=== PATIENT | female | born 1965 | race Caucasian/White ===

== ENCOUNTER 2016-10-26 13:31 | Emergency (ER) | payer OTHER ==
[2016-10-26 13:38] VITALS: TEMP 97.5; BMI 27.6
[2016-10-26 14:43] LABS: AUTOMATED BASOPHIL 0.6 % (0-2); AUTOMATED EOSINOPHIL 1.9 % (0-5); AUTOMATED LYMPH 28.9 % (17-44); AUTOMATED MONOCYTE 8.5 % (3-10); AUTOMATED NEUTROPHIL 60.1 % (45-76)
[2016-10-26 14:48] LABS: LEUKOCYTES/URINE NEG (NEGATIVE); NITRITE/URINE NEG (NEGATIVE); RBC/URINE 0-2 (0-5); URINE OCCULT BLOOD NEG (NEG/TRACE); WBC/URINE 0-2 (0-5)
[2016-10-26 15:04] LABS: BLOOD UREA NITROGEN 13 MG/DL (7-17); CALCIUM 8.9 MG/DL (8.4-10.2); CALCULATED OSMOLALITY 263 MOs/Kg (270-290); CHLORIDE 101 mEq/L (98-107); GLUCOSE 86 mg/dL (70-99); SODIUM LEVEL 137 mEq/L (137-146); TOTAL PROTEIN 7.3 G/DL (6.3-8.2)
[2016-10-26] MEDS ORDERED: MORPHINE 4 MG/ML INJECTION IV ONE (15:16)
[2016-10-26] MEDS ORDERED: NS 1,000 ML IV ONE (15:16)
[2016-10-26] MEDS ORDERED: ONDANSETRON HCL 4 MG/2 ML VIAL IV ONE (15:16)
--- NOTE | 2016-10-26 15:19 | EDPRACDOC ---
<Cydney Quezada - Last Filed: 10/26/16 16:27> - General Information Information Source: Patient - History of Present Illness Onset: 2 weeks HPI: C/O progressive left flank and suprapubic pain and nausea x 2 weeks. Pain is intermittent, sharp, lasts a few minutes and then goes away. Better with movement, better or worse with positioning. Denies fever, sob, cp, cough, sore throat, V/D. No prior hx of kidney stones. Mmed hx = none. Surgical hx = appy, keith, hysterectomy. Pain Location: Reports: Left, Flank Pain Radiates To: Reports: None Pain Caused By: Reports: Spontaneous Circumstances: Reports: Unknown Currently ?: No Pain Severity: Reports: Moderate Pain Quality: Reports: Sharp Worsened By: Reports: Twisting Associated Signs and Symptoms: Reports: Abdominal Pain, Nausea <Nawaf Segovia - Last Filed: 10/28/16 04:52> - General Information Chief Complaint: Female Urogenital Problems Stated Complaint: FLANK PAIN Home Medications: Home Medications Ibuprofen Tablet [Motrin] 600 mg PO TID PRN #30 tab 10/26/16 Allergies/Adverse Reactions: Allergies Allergy/AdvReac Type Severity Reaction Status Date / Time No Known Allergies Allergy Verified 10/26/16 13:35 ED Past Medical History - History Reviewed Yes Nurses notes reviewed and agree except as marked - Patient Medical History Surgical History: Reports: Hysterectomy - Social Medical History Smoking Status: Never smoker <Nawaf Segovia - Last Filed: 10/28/16 04:52> EDM Review of Systems - Review of Systems ROS Negative Except as Marked: Yes All systems reviewed and were negative except as marked Gastrointestinal: Nausea, Pain Genitourinary: Flank Pain (left) <Nawaf Segovia - Last Filed: 10/28/16 04:52> - Physical Exam Last recorded Vital Signs: Last Vital Signs Temp 97.5 F 10/26/16 13:35 Pulse 65 10/26/16 13:35 Resp 20 10/26/16 13:35 BP 133/75 10/26/16 13:35 Pulse Ox 99 10/26/16 13:35 Oxygen Pulse Oxygen Saturation 99 O2 Device Oxygen Flow Rate Fraction of Inspired Oxygen ( FIO2) <Cydney Quezada - Last Filed: 10/26/16 16:27> - Physical Exam Constitutional: Alert, Distress (pain) Oriented to: Time, Person, Place Last recorded Vital Signs: Last Vital Signs Temp 97.5 F 10/26/16 13:35 Pulse 65 10/26/16 13:35 Resp 20 10/26/16 13:35 BP 133/75 10/26/16 13:35 Pulse Ox 99 10/26/16 13:35 Oxygen Pulse Oxygen Saturation 99 O2 Device Oxygen Flow Rate Fraction of Inspired Oxygen ( FIO2) - HEENT Head: Normal Eye Exam: negative: Conjunctival Injection, Scleral Icterus Oropharynx: negative: Drooling TMJ: Normal Nose: No Symptoms Reported Neck: Normal - Respiratory/Cardiovascular Respiratory: Normal - CTA Cardiovascular: Normal - GI Tenderness: Non tender - Musculoskeletal Back: Normal Extremities: Normal - Integumentary Skin: Normal - Neurologic Mood Description: Normal Thought: Coherent Perception: Normal <Nawaf Segovia - Last Filed: 10/28/16 04:52> - Results 10/26/16 14:10 10/26/16 14:10 WBC 8.1 xk/uL (3.8-10.8) 10/26/16 14:10 RBC 4.79 xM/uL (4.20-5.40) 10/26/16 14:10 Hgb 15.2 g/dL (12.0-16.0) 10/26/16 14:10 Hct 44.2 % (36-47) 10/26/16 14:10 MCV 92 fL (81-99) 10/26/16 14:10 MCH 31.7 pg (27-32) 10/26/16 14:10 MCHC 34.4 g/dl (33-36) 10/26/16 14:10 RDW 13.0 % (11.5-14.5) 10/26/16 14:10 Plt Count 283 xk/uL (130-400) 10/26/16 14:10 MPV 7.0 fL (7.4-10.4) L 10/26/16 14:10 Neut % (Auto) 60.1 % (45-76) 10/26/16 14:10 Lymph % (Auto) 28.9 % (17-44) 10/26/16 14:10 Rich % (Auto) 8.5 % (3-10) 10/26/16 14:10 Eos % (Auto) 1.9 % (0-5) 10/26/16 14:10 Baso % (Auto) 0.6 % (0-2) 10/26/16 14:10 Absolute Neuts (auto) 4.86 xk/uL (1.7-8.2) 10/26/16 14:10 Absolute Lymphs (auto) 2.27 xk/uL (0.65-4.75) 10/26/16 14:10 Sodium 137 mEq/L (137-146) 10/26/16 14:10 Potassium 4.1 mEq/L (3.5-5.1) 10/26/16 14:10 Chloride 101 mEq/L (98-107) 10/26/16 14:10 Carbon Dioxide 27 mMOL/L (22-33) 10/26/16 14:10 Anion Gap 13 mEq/L (8-16) 10/26/16 14:10 BUN 13 MG/DL (7-17) 10/26/16 14:10 Creatinine 0.60 MG/DL (0.52-1.04) 10/26/16 14:10 Estimated GFR (MDRD) > 60 mL/min (>=60) 10/26/16 14:10 Glucose 86 mg/dL (70-99) 10/26/16 14:10 Calculated Osmolality 263 MOs/Kg (270-290) L 10/26/16 14:10 Calcium 8.9 MG/DL (8.4-10.2) 10/26/16 14:10 Total Bilirubin 0.9 MG/DL (0.2-1.3) 10/26/16 14:10 AST 35 IU/L (14-36) 10/26/16 14:10 ALT 51 IU/L (9-52) 10/26/16 14:10 Alkaline Phosphatase 74 IU/L (38-126) 10/26/16 14:10 Total Protein 7.3 G/DL (6.3-8.2) 10/26/16 14:10 Albumin 4.4 G/DL (3.5-5.0) 10/26/16 14:10 Urine Color Yellow 10/26/16 14:05 Urine Clarity Clear 10/26/16 14:05 Urine pH 5.0 (5.0-8.0) 10/26/16 14:05 Ur Specific Cornelius 1.005 (1.003-1.035) 10/26/16 14:05 Urine Protein Neg (NEG/TRACE) 10/26/16 14:05 Urine Glucose (UA) Neg (NEGATIVE) 10/26/16 14:05 Urine Ketones Neg (NEGATIVE) 10/26/16 14:05 Urine Occult Blood Neg (NEG/TRACE) 10/26/16 14:05 Urine Nitrite Neg (NEGATIVE) 10/26/16 14:05 Urine Bilirubin Neg (NEGATIVE) 10/26/16 14:05 Urine Urobilinogen <2.0 MG/DL (0-1) 10/26/16 14:05 Ur Leukocyte Esterase Neg (NEGATIVE) 10/26/16 14:05 Urine RBC 0-2 (0-5) 10/26/16 14:05 Urine WBC 0-2 (0-5) 10/26/16 14:05 Ur Epithelial Cells 1+ 10/26/16 14:05 Urine Bacteria 1+ (NEG/FEW) H 10/26/16 14:05 Urine Mucus Occ (NEG/OCC) 10/26/16 14:05 Lab Results 10/26/16 10/26/16 10/26/16 14:10 14:10 14:05 WBC 8.1 RBC 4.79 Hgb 15.2 Hct 44.2 MCV 92 MCH 31.7 MCHC 34.4 RDW 13.0 Plt Count 283 MPV 7.0 L Neut % (Auto) 60.1 Lymph % (Auto) 28.9 Rich % (Auto) 8.5 Eos % (Auto) 1.9 Baso % (Auto) 0.6 Absolute Neuts (auto) 4.86 Absolute Lymphs (auto) 2.27 Sodium 137 Potassium 4.1 Chloride 101 Carbon Dioxide 27 Anion Gap 13 BUN 13 Creatinine 0.60 Estimated GFR (MDRD) > 60 Glucose 86 Calculated Osmolality 263 L Calcium 8.9 Total Bilirubin 0.9 AST 35 ALT 51 Alkaline Phosphatase 74 Total Protein 7.3 Albumin 4.4 Urine Color Yellow Urine Clarity Clear Urine pH 5.0 Ur Specific Cornelius 1.005 Urine Protein Neg Urine Glucose (UA) Neg Urine Ketones Neg Urine Occult Blood Neg Urine Nitrite Neg Urine Bilirubin Neg Urine Urobilinogen <2.0 Ur Leukocyte Esterase Neg Urine RBC 0-2 Urine WBC 0-2 Ur Epithelial Cells 1+ Urine Bacteria 1+ H Urine Mucus Occ <QuezadaCydney beal N - Last Filed: 10/26/16 16:27> - Results 10/26/16 14:10 10/26/16 14:10 WBC 8.1 xk/uL (3.8-10.8) 10/26/16 14:10 RBC 4.79 xM/uL (4.20-5.40) 10/26/16 14:10 Hgb 15.2 g/dL (12.0-16.0) 10/26/16 14:10 Hct 44.2 % (36-47) 10/26/16 14:10 MCV 92 fL (81-99) 10/26/16 14:10 MCH 31.7 pg (27-32) 10/26/16 14:10 MCHC 34.4 g/dl (33-36) 10/26/16 14:10 RDW 13.0 % (11.5-14.5) 10/26/16 14:10 Plt Count 283 xk/uL (130-400) 10/26/16 14:10 MPV 7.0 fL (7.4-10.4) L 10/26/16 14:10 Neut % (Auto) 60.1 % (45-76) 10/26/16 14:10 Lymph % (Auto) 28.9 % (17-44) 10/26/16 14:10 Rich % (Auto) 8.5 % (3-10) 10/26/16 14:10 Eos % (Auto) 1.9 % (0-5) 10/26/16 14:10 Baso % (Auto) 0.6 % (0-2) 10/26/16 14:10 Absolute Neuts (auto) 4.86 xk/uL (1.7-8.2) 10/26/16 14:10 Absolute Lymphs (auto) 2.27 xk/uL (0.65-4.75) 10/26/16 14:10 Sodium 137 mEq/L (137-146) 10/26/16 14:10 Potassium 4.1 mEq/L (3.5-5.1) 10/26/16 14:10 Chloride 101 mEq/L (98-107) 10/26/16 14:10 Carbon Dioxide 27 mMOL/L (22-33) 10/26/16 14:10 Anion Gap 13 mEq/L (8-16) 10/26/16 14:10 BUN 13 MG/DL (7-17) 10/26/16 14:10 Creatinine 0.60 MG/DL (0.52-1.04) 10/26/16 14:10 Estimated GFR (MDRD) > 60 mL/min (>=60) 10/26/16 14:10 Glucose 86 mg/dL (70-99) 10/26/16 14:10 Calculated Osmolality 263 MOs/Kg (270-290) L 10/26/16 14:10 Calcium 8.9 MG/DL (8.4-10.2) 10/26/16 14:10 Total Bilirubin 0.9 MG/DL (0.2-1.3) 10/26/16 14:10 AST 35 IU/L (14-36) 10/26/16 14:10 ALT 51 IU/L (9-52) 10/26/16 14:10 Alkaline Phosphatase 74 IU/L (38-126) 10/26/16 14:10 Total Protein 7.3 G/DL (6.3-8.2) 10/26/16 14:10 Albumin 4.4 G/DL (3.5-5.0) 10/26/16 14:10 Urine Color Yellow 10/26/16 14:05 Urine Clarity Clear 10/26/16 14:05 Urine pH 5.0 (5.0-8.0) 10/26/16 14:05 Ur Specific Cornelius 1.005 (1.003-1.035) 10/26/16 14:05 Urine Protein Neg (NEG/TRACE) 10/26/16 14:05 Urine Glucose (UA) Neg (NEGATIVE) 10/26/16 14:05 Urine Ketones Neg (NEGATIVE) 10/26/16 14:05 Urine Occult Blood Neg (NEG/TRACE) 10/26/16 14:05 Urine Nitrite Neg (NEGATIVE) 10/26/16 14:05 Urine Bilirubin Neg (NEGATIVE) 10/26/16 14:05 Urine Urobilinogen <2.0 MG/DL (0-1) 10/26/16 14:05 Ur Leukocyte Esterase Neg (NEGATIVE) 10/26/16 14:05 Urine RBC 0-2 (0-5) 10/26/16 14:05 Urine WBC 0-2 (0-5) 10/26/16 14:05 Ur Epithelial Cells 1+ 10/26/16 14:05 Urine Bacteria 1+ (NEG/FEW) H 10/26/16 14:05 Urine Mucus Occ (NEG/OCC) 10/26/16 14:05 Lab Results 10/26/16 10/26/16 10/26/16 14:10 14:10 14:05 WBC 8.1 RBC 4.79 Hgb 15.2 Hct 44.2 MCV 92 MCH 31.7 MCHC 34.4 RDW 13.0 Plt Count 283 MPV 7.0 L Neut % (Auto) 60.1 Lymph % (Auto) 28.9 Rich % (Auto) 8.5 Eos % (Auto) 1.9 Baso % (Auto) 0.6 Absolute Neuts (auto) 4.86 Absolute Lymphs (auto) 2.27 Sodium 137 Potassium 4.1 Chloride 101 Carbon Dioxide 27 Anion Gap 13 BUN 13 Creatinine 0.60 Estimated GFR (MDRD) > 60 Glucose 86 Calculated Osmolality 263 L Calcium 8.9 Total Bilirubin 0.9 AST 35 ALT 51 Alkaline Phosphatase 74 Total Protein 7.3 Albumin 4.4 Urine Color Yellow Urine Clarity Clear Urine pH 5.0 Ur Specific Cornelius 1.005 Urine Protein Neg Urine Glucose (UA) Neg Urine Ketones Neg Urine Occult Blood Neg Urine Nitrite Neg Urine Bilirubin Neg Urine Urobilinogen <2.0 Ur Leukocyte Esterase Neg Urine RBC 0-2 Urine WBC 0-2 Ur Epithelial Cells 1+ Urine Bacteria 1+ H Urine Mucus Occ - Diagnostic Imaging Abdomen Image interpreted by: Radiologist EXAM: CT ABDOMEN AND PELVIS WITHOUT CONTRAST TECHNIQUE: Multidetector CT imaging of the abdomen and pelvis was performed following the standard protocol without IV contrast. COMPARISON: None. FINDINGS: Lower chest: Lung bases are clear. Normal heart size. Hepatobiliary: Normal liver. Prior cholecystectomy. Pancreas: Normal. Spleen: Normal. Adrenals/Urinary Tract: Normal adrenal glands. Normal kidneys. Normal bladder. Stomach/Bowel: No bowel dilatation or bowel wall thickening. No pneumatosis, pneumoperitoneum or portal venous gas. No abdominal or pelvic free fluid. Vascular/Lymphatic: Normal caliber abdominal aorta. No lymphadenopathy. Reproductive: Prior hysterectomy. No adnexal mass. Other: No fluid collection or hematoma. Musculoskeletal: No acute osseous abnormality. No lytic or sclerotic osseous lesion. Bilateral facet arthropathy at L4-5. IMPRESSION: 1. No urolithiasis or obstructive uropathy. Electronically Signed By: Martita Andino On: 10/26/2016 15:42 <Nawaf Segovia - Last Filed: 10/28/16 04:52> <Cydney Quezada - Last Filed: 10/26/16 16:27> Decision Time to Discharge: 16:13 - Departure Disposition: Home Education/Counseling Given To: Patient Education/Counseling Given Regarding: Diagnosis, Treatment, Prognosis, Follow Up <Nawaf Segovia - Last Filed: 10/28/16 04:52> - Departure Condition: Stable Final Diagnosis: Left flank pain Instructions: Ibuprofen (By mouth), Non-pharmacological Pain Management Therapies for Adults (GEN), Abdominal Pain (ED) Referrals: Rigo Nava MD [Staff Physician] - One Week Prescriptions: New Ibuprofen Tablet [Motrin] 600 mg PO TID PRN #30 tab PRN Reason: Pain Additional Instructions: Follow up with primary care. Return to ED fopr any new or worsening symptoms.
--- NOTE | 2016-10-26 15:45 | DIRPT ---
CLINICAL DATA: Left flank pain for 2 weeks EXAM: CT ABDOMEN AND PELVIS WITHOUT CONTRAST TECHNIQUE: Multidetector CT imaging of the abdomen and pelvis was performed following the standard protocol without IV contrast. COMPARISON: None. FINDINGS: Lower chest: Lung bases are clear. Normal heart size. Hepatobiliary: Normal liver. Prior cholecystectomy. Pancreas: Normal. Spleen: Normal. Adrenals/Urinary Tract: Normal adrenal glands. Normal kidneys. Normal bladder. Stomach/Bowel: No bowel dilatation or bowel wall thickening. No pneumatosis, pneumoperitoneum or portal venous gas. No abdominal or pelvic free fluid. Vascular/Lymphatic: Normal caliber abdominal aorta. No lymphadenopathy. Reproductive: Prior hysterectomy. No adnexal mass. Other: No fluid collection or hematoma. Musculoskeletal: No acute osseous abnormality. No lytic or sclerotic osseous lesion. Bilateral facet arthropathy at L4-5. IMPRESSION: 1. No urolithiasis or obstructive uropathy. Electronically Signed By: Martita Andino On: 10/26/2016 15:42
[2016-10-26 17:05] VITALS: BP 121/64; PULSE 51
== END 2016-10-26 17:11 | disposition home or self-care (01) ==
LOC: ED 13:31
DX: R10.9 Unspecified abdominal pain (principal)
CPT/HCPCS: 36415; 74176; 80053; 81001; 85025; 96361; 96374; 96375; 99283; J2270; J2405